=== PATIENT | female | born 1970 | race Two or more races ===

== ENCOUNTER 2017-01-18 17:30 | Emergency (ER) | payer BC, OTHER ==
[~2017-01-18] VITALS: Ht 167.6 cm; Wt 86.2 kg
[~2017-01-18 17:30] MED LIST: PREN1TAB49 PO
[2017-01-18 17:40] VITALS: BP_SYST 123
[2017-01-18] MEDS ORDERED: ACETAMINOPHEN 325 MG TABLET PO ONE (18:15)
[2017-01-18] MEDS ORDERED: ONDANSETRON 4 MG ODT TAB PO ONE (18:15)
[2017-01-18 20:23] VITALS: BP_SYST 135
== END 2017-01-18 20:22 | disposition home or self-care (01) ==
LOC: SED 17:30
DX: M54.6 Pain in thoracic spine (principal); R51 Headache; R11.0 Nausea
CPT/HCPCS: 70450; 72125; 72128; 81025; 99284; Q0162